=== PATIENT | female | born 1980 | race Two or more races ===

== ENCOUNTER 2017-09-20 18:10 | Emergency (ER) | payer BC ==
[~2017-09-20] VITALS: Ht 170.2 cm; Wt 113.4 kg
[2017-09-20 18:23] VITALS: BP 135/87
[2017-09-20 19:17] LABS: Eosinophils # (auto) 0.3 uL; Hemoglobin 11.8 g/dL (12.2-16.2); Neutrophils # (auto) 3.9 uL; Nucleated Red Blood Cells % 0.1 %; Red Cell Distribution Width 15.4 % (11.8-14.3)
[2017-09-20 19:19] LABS: Basophils # (auto) 0 uL; Basophils % (auto) 0.5 % (0.0-2.0); Eosinophils % (auto) 3.6 % (0.0-7.0); Hematocrit 35.8 % (36.0-46.0); Lymphocytes # (auto) 3.2 uL; Lymphocytes % (auto) 39.3 % (10.0-50.0); Mean Corpuscular Hemoglobin 27.2 pg (28.0-32.0); Mean Corpuscular Volume 82.5 fL (80.0-100.0); Monocytes # (auto) 0.6 uL; Monocytes % (auto) 7.6 % (0.0-12.0); Platelet Count (auto) 287 10^3/uL (140-450); Red Blood Cells 4.34 10^6/uL (4.0-5.20)
[2017-09-20 19:37] LABS: Alanine Aminotransferase 32 U/L (13-56); Albumin 3.8 g/dL (3.4-5.0); Alkaline Phosphatase 84 U/L (45-117); Anion Gap 8 (5-15); Aspartate Aminotransferase 19 U/L (15-37); BUN/Creatinine Ratio 14.8; Bilirubin, Total 0.2 mg/dL (0.2-1.0); Blood Urea Nitrogen 12 mg/dL (7-18); Calcium 8.6 mg/dL (8.5-10.1); Carbon Dioxide 23 mmol/L (21-32); Chloride 108 mmol/L (98-107); GFR African American 104 mL/min; GFR Non-African American 86 mL/min; Glucose 100 mg/dL (74-106); Magnesium 2.2 mg/dL (1.6-2.6); Potassium 3.6 mmol/L (3.5-5.1); Sodium 139 mmol/L (136-145); Total Protein 7.5 g/dL (6.4-8.2)
== END 2017-09-21 02:37 | disposition left against medical advice (07) ==
LOC: ER 18:10
DX: R20.0 Anesthesia of skin (principal); Z53.21 Procedure and treatment not carried out due to patient leaving prior to being seen by health care provider
CPT/HCPCS: 36415; 70450; 80053; 83735; 84484; 85025; 93005

== ENCOUNTER 2017-09-21 08:05 | Emergency (ER) | payer BC ==
[~2017-09-21] VITALS: Ht 170.2 cm; Wt 113.4 kg
[2017-09-21 08:22] VITALS: BP 115/76
== END 2017-09-21 08:45 | disposition home or self-care (01) ==
LOC: ER 08:11
DX: R20.0 Anesthesia of skin (principal); Z88.6 Allergy status to analgesic agent; Z88.8 Allergy status to other drugs, medicaments and biological substances

== ENCOUNTER 2021-01-16 13:49 | Emergency (ER) | payer BC ==
[~2021-01-16] VITALS: Ht 170.2 cm; Wt 113.4 kg
[2021-01-16 15:16] VITALS: BP 140/76
== END 2021-01-16 15:59 | disposition home or self-care (01) ==
LOC: ER 13:50
DX: S46.911A Strain of unspecified muscle, fascia and tendon at shoulder and upper arm level, right arm, initial encounter (principal); R51.9 Headache, unspecified; Z98.51 Tubal ligation status; Z88.6 Allergy status to analgesic agent; Z88.8 Allergy status to other drugs, medicaments and biological substances; V43.52XA Car driver injured in collision with other type car in traffic accident, initial encounter; Y93.89 Activity, other specified; Y92.410 Unspecified street and highway as the place of occurrence of the external cause; Y99.8 Other external cause status
CPT/HCPCS: 70450; 73030

== ENCOUNTER 2021-07-06 09:31 | Inpatient (IN) | payer BC ==
[~2021-07-06] VITALS: Ht 170.2 cm; Wt 117.7 kg
[2021-07-06 11:22] LABS: Basophils # (auto) 0.1 10 ^3/uL (0-0.2); Eosinophils # (auto) 0 10 ^3/uL (0-0.8); Monocytes # (auto) 0.5 10 ^3/uL (0-1.3); Red Blood Cells 4.26 10^6/uL (4.0-5.20)
[2021-07-06 11:24] LABS: Basophils % (auto) 0.6 % (0.0-2.0); Hemoglobin 9.9 g/dL (12.2-16.2); Lymphocytes # (auto) 0.4 10 ^3/uL (0.4-5.4); Lymphocytes % (auto) 4.3 % (10.0-50.0); Mean Corpuscular Hemoglobin 23.2 pg (28.0-32.0); Mean Corpuscular Hgb Conc. 31.9 g/dL (32.0-36.0); Mean Corpuscular Volume 72.8 fL (80.0-100.0); Monocytes % (auto) 4.5 % (0.0-12.0); Neutrophils # (auto) 9.4 10 ^3/uL (1.6-8.6); Neutrophils % (auto) 90.6 % (37.0-80.0); Nucleated Red Blood Cells % 0.1 %; White Blood Cell 10.4 10^3/uL (4.4-10.8)
[2021-07-06 11:34] LABS: Albumin 3.2 g/dL (3.4-5.0); Calcium 8.4 mg/dL (8.5-10.1); Potassium 3.2 mmol/L (3.5-5.1)
[2021-07-06 11:37] LABS: Urine Bacteria NONE SEEN /hpf (None Seen); Urine Blood TRACE /uL (Negative); Urine Mucus FEW (None Seen); Urine WBC 28 /hpf (0 - 5)
[2021-07-06 11:41] LABS: BUN/Creatinine Ratio 10.1; Total Protein 7.4 g/dL (6.4-8.2)
[2021-07-06] MEDS ORDERED: IBUPROFEN 800 MG TAB PO ONE (14:45)
[2021-07-06] MEDS ORDERED: cefTRIAXone 1GM/50ML D5W 50 ML IV ONE (19:30)
[2021-07-06] MEDS ORDERED: ONDANSETRON HCL 4 MG/2 ML VIAL IV ONE (19:30)
[2021-07-06] MEDS ORDERED: HYDROmorphone HCL 2 MG/ML VL IV ONE (19:30)
[2021-07-06] MEDS ORDERED: SODIUM CHLORIDE 0.9% 1,000 ML IV ONE ×2 (19:30→22:15)
[2021-07-06] MEDS ORDERED: POTASSIUM EFFERVESENT TAB 25 MEQ PO ONE (20:30)
[2021-07-06] MEDS ORDERED: DOCUSATE SOD 100 MG CAP PO PRN (22:15)
[2021-07-06] MEDS ORDERED: MORPHINE SULFATE INJECTION 2 MG/ML SYRG IV PRN ×2 (22:15)
[2021-07-06] MEDS ORDERED: NITROGLYCERIN 0.4 MG SL TAB SL PRN (22:15)
[2021-07-06] MEDS ORDERED: ONDANSETRON HCL 4 MG/2 ML VIAL IV PRN (22:15)
[2021-07-07 01:01] LABS: Basophils # (auto) 0 10 ^3/uL (0-0.2); Eosinophils # (auto) 0 10 ^3/uL (0-0.8); Hemoglobin 8.8 g/dL (12.2-16.2); Lymphocytes # (auto) 0.4 10 ^3/uL (0.4-5.4); Monocytes # (auto) 0.4 10 ^3/uL (0-1.3); Red Cell Distribution Width 17.2 % (11.8-14.3)
[2021-07-07 01:06] LABS: Basophils % (auto) 0.7 % (0.0-2.0); Eosinophils % (auto) 0.1 % (0.0-7.0); Hematocrit 27.3 % (36.0-46.0); Lymphocytes % (auto) 7.4 % (10.0-50.0); Mean Corpuscular Hemoglobin 23.6 pg (28.0-32.0); Mean Corpuscular Hgb Conc. 32.2 g/dL (32.0-36.0); Mean Corpuscular Volume 73.5 fL (80.0-100.0); Monocytes % (auto) 6.9 % (0.0-12.0); Neutrophils # (auto) 4.4 10 ^3/uL (1.6-8.6); Neutrophils % (auto) 84.9 % (37.0-80.0); Nucleated Red Blood Cells % 0.1 %; Red Blood Cells 3.72 10^6/uL (4.0-5.20); White Blood Cell 5.2 10^3/uL (4.4-10.8)
[2021-07-07 01:30] VITALS: BP 127/67
[2021-07-07] MEDS: IBUPROFEN 800 MG TAB PO PRN ×3 (02:03→20:52)
[2021-07-07] MEDS ORDERED: PAR20T PO (02:54)
[2021-07-07 05:00] VITALS: BP 105/63
[2021-07-07] MEDS: HYDROmorphone HCL 2 MG/ML VL IV PRN ×3 (06:26→22:39)
[2021-07-07 08:00] VITALS: BP 103/52
[2021-07-07 13:00] VITALS: BP 119/73
[2021-07-07] MEDS ORDERED: cefTRIAXone 1GM/50ML D5W 50 ML IV ONE (14:15)
[2021-07-07] MEDS ORDERED: metroNIDAZOLE 500MG/100ML 100 ML IV ONE (14:15)
[2021-07-07 16:00] VITALS: BP 122/64
[2021-07-07 16:52] LABS: Albumin 2.7 g/dL (3.4-5.0); Potassium 3.3 mmol/L (3.5-5.1)
[2021-07-07 16:53] LABS: INR 0.98 (0.9-1.15); Partial Thromboplastin Time 26.9 sec (23.6-33.0)
[2021-07-07 16:55] LABS: Bilirubin, Total 0.5 mg/dL (0.2-1.0); Total Protein 6.7 g/dL (6.4-8.2)
[2021-07-07] MEDS ORDERED: POTASSIUM EFFERVESENT TAB 25 MEQ PO ONE (17:15)
[2021-07-07] MEDS: SODIUM CHLORIDE 0.9% 1,000 ML IV SCH ×2 (17:27→23:53)
[2021-07-07] MEDS ORDERED: HYDROmorphone HCL 2 MG/ML VL IV ONE (17:45)
[2021-07-07 18:20] LABS: BUN/Creatinine Ratio 15.7
[2021-07-07] MEDS: metroNIDAZOLE 500MG/100ML 100 ML IV SCH (21:55)
[2021-07-07 22:00] VITALS: BP 129/69
[2021-07-07] MEDS: PANTOPRAZOLE 40 MG/10 ML VIAL INJ IV SCH (22:26)
[2021-07-08] VITALS: BP 114/57
[2021-07-08] MEDS: HYDROmorphone HCL 2 MG/ML VL IV PRN ×3 (04:46→22:30)
[2021-07-08 05:00] VITALS: BP 114/56
[2021-07-08] MEDS: metroNIDAZOLE 500MG/100ML 100 ML IV SCH ×3 (06:12→21:44)
[2021-07-08] MEDS: SODIUM CHLORIDE 0.9% 1,000 ML IV SCH ×3 (06:12→19:27)
[2021-07-08 06:16] LABS: Albumin 2.3 g/dL (3.4-5.0); Calcium 7.2 mg/dL (8.5-10.1); Potassium 3.3 mmol/L (3.5-5.1)
[2021-07-08 06:21] LABS: Bilirubin, Total 0.4 mg/dL (0.2-1.0); Total Protein 5.7 g/dL (6.4-8.2)
[2021-07-08 06:50] LABS: Basophils # (auto) 0 10 ^3/uL (0-0.2); Basophils % (auto) 0.5 % (0.0-2.0); Eosinophils # (auto) 0 10 ^3/uL (0-0.8); Eosinophils % (auto) 0.5 % (0.0-7.0); Hematocrit 24.6 % (36.0-46.0); Hemoglobin 7.9 g/dL (12.2-16.2); Lymphocytes # (auto) 1.2 10 ^3/uL (0.4-5.4); Lymphocytes % (auto) 26.3 % (10.0-50.0); Mean Corpuscular Hemoglobin 23.5 pg (28.0-32.0); Mean Corpuscular Hgb Conc. 32.1 g/dL (32.0-36.0); Mean Corpuscular Volume 73.1 fL (80.0-100.0); Monocytes # (auto) 0.5 10 ^3/uL (0-1.3); Neutrophils # (auto) 2.7 10 ^3/uL (1.6-8.6); Neutrophils % (auto) 60.7 % (37.0-80.0); Nucleated Red Blood Cells % 0.1 %; Red Blood Cells 3.37 10^6/uL (4.0-5.20); Red Cell Distribution Width 17.3 % (11.8-14.3); White Blood Cell 4.5 10^3/uL (4.4-10.8)
[2021-07-08 08:00] VITALS: BP 135/56
[2021-07-08 09:00] VITALS: BP 135/56
[2021-07-08] MEDS: PANTOPRAZOLE 40 MG/10 ML VIAL INJ IV SCH (09:14)
[2021-07-08] MEDS: cefTRIAXone 1GM/50ML D5W 50 ML IV SCH (09:14)
[2021-07-08] MEDS: IBUPROFEN 800 MG TAB PO PRN (09:49)
[2021-07-08] MEDS ORDERED: fentaNYL CITRATE 100 MCG/2 ML VL IV PRN (10:45)
[2021-07-08] MEDS ORDERED: ePHEDrine SULFATE 50 MG/ML AMP IV PRN (10:45)
[2021-07-08] MEDS ORDERED: MIDAZOLAM HCL 2MG/2ML 2ml VIAL (1mg/ml) IV PRN (10:45)
[2021-07-08] MEDS ORDERED: LABETALOL HCL 5 MG/ML 4ML SYRINGE IV PRN (10:45)
[2021-07-08] MEDS ORDERED: ONDANSETRON HCL 4 MG/2 ML VIAL IV PRN (10:45)
[2021-07-08] MEDS ORDERED: BUPIVACAINE W/ EPINEPH 0.25% INJ 50ML MDV ONE (11:17)
[2021-07-08] MEDS ORDERED: fentaNYL CITRATE 100 MCG/2 ML VL ONE ×2 (11:50→13:08)
[2021-07-08] MEDS ORDERED: MEPERIDINE HCL (50 MG/ML) 1 ML VIAL ONE (11:51)
[2021-07-08] MEDS ORDERED: MIDAZOLAM HCL 2MG/2ML 2ml VIAL (1mg/ml) ONE (11:51)
[2021-07-08] MEDS ORDERED: DexAMETHasone SOD PHOS 10MG/1ML VIAL INJ ONE (12:17)
[2021-07-08] MEDS ORDERED: SUCCINYLCHOLINE CHLORIDE 20 MG/ML 10ML VIAL IV ONE (12:26)
[2021-07-08] MEDS ORDERED: PROPOFOL 10 MG/ML 20 ML IV ONE (12:44)
[2021-07-08] MEDS ORDERED: ONDANSETRON HCL 4 MG/2 ML VIAL ONE (12:44)
[2021-07-08] MEDS ORDERED: ROCURONIUM 10MG/ML 10ML VIAL IV ONE (12:48)
[2021-07-08 17:00] VITALS: BP 130/75
[2021-07-08 22:00] VITALS: BP 116/92
[2021-07-09] VITALS (7 sets, daily range): BP systolic 105–120; BP diastolic 54–73
[2021-07-09] MEDS: SODIUM CHLORIDE 0.9% 1,000 ML IV SCH ×4 (01:50→21:50)
[2021-07-09] MEDS: HYDROmorphone HCL 2 MG/ML VL IV PRN ×3 (04:12→20:07)
[2021-07-09] MEDS: metroNIDAZOLE 500MG/100ML 100 ML IV SCH ×3 (05:14→21:49)
[2021-07-09 05:32] LABS: Basophils # (auto) 0 10 ^3/uL (0-0.2); Basophils % (auto) 0.2 % (0.0-2.0); Eosinophils # (auto) 0 10 ^3/uL (0-0.8); Hematocrit 23.7 % (36.0-46.0); Hemoglobin 7.8 g/dL (12.2-16.2); Lymphocytes # (auto) 1.1 10 ^3/uL (0.4-5.4); Lymphocytes % (auto) 17.8 % (10.0-50.0); Mean Corpuscular Hemoglobin 23.8 pg (28.0-32.0); Mean Corpuscular Hgb Conc. 32.7 g/dL (32.0-36.0); Mean Corpuscular Volume 72.7 fL (80.0-100.0); Monocytes # (auto) 0.6 10 ^3/uL (0-1.3); Monocytes % (auto) 9.3 % (0.0-12.0); Neutrophils # (auto) 4.4 10 ^3/uL (1.6-8.6); Neutrophils % (auto) 72.7 % (37.0-80.0); Nucleated Red Blood Cells % 0.1 %; Red Blood Cells 3.26 10^6/uL (4.0-5.20); Red Cell Distribution Width 17.2 % (11.8-14.3)
[2021-07-09 05:52] LABS: Albumin 2.5 g/dL (3.4-5.0); BUN/Creatinine Ratio 11.8; Calcium 7.8 mg/dL (8.5-10.1); Potassium 3.3 mmol/L (3.5-5.1)
[2021-07-09 06:09] LABS: Bilirubin, Total 0.2 mg/dL (0.2-1.0); Total Protein 6.1 g/dL (6.4-8.2)
[2021-07-09] MEDS: cefTRIAXone 1GM/50ML D5W 50 ML IV SCH (09:02)
[2021-07-09] MEDS: PANTOPRAZOLE 40 MG/10 ML VIAL INJ IV SCH (09:02)
[2021-07-09] MEDS ORDERED: POTASSIUM CHL 20 Meq TABLET PO ONE (10:45)
[2021-07-10] VITALS (7 sets, daily range): BP systolic 100–145; BP diastolic 67–97
[2021-07-10] MEDS: HYDROmorphone HCL 2 MG/ML VL IV PRN ×6 (01:48→23:51)
[2021-07-10] MEDS: SODIUM CHLORIDE 0.9% 1,000 ML IV SCH ×3 (05:20→17:30)
[2021-07-10 05:58] LABS: Eosinophils # (auto) 0.1 10 ^3/uL (0-0.8); Hemoglobin 7.3 g/dL (12.2-16.2); Mean Corpuscular Hemoglobin 23.8 pg (28.0-32.0); Monocytes # (auto) 0.9 10 ^3/uL (0-1.3); Neutrophils # (auto) 5.5 10 ^3/uL (1.6-8.6)
[2021-07-10 06:01] LABS: Basophils # (auto) 0 10 ^3/uL (0-0.2); Basophils % (auto) 0.4 % (0.0-2.0); Eosinophils % (auto) 0.7 % (0.0-7.0); Hematocrit 22.7 % (36.0-46.0); Lymphocytes # (auto) 2.6 10 ^3/uL (0.4-5.4); Lymphocytes % (auto) 28.6 % (10.0-50.0); Mean Corpuscular Hgb Conc. 32.3 g/dL (32.0-36.0); Mean Corpuscular Volume 73.6 fL (80.0-100.0); Monocytes % (auto) 9.4 % (0.0-12.0); Neutrophils % (auto) 60.9 % (37.0-80.0); Nucleated Red Blood Cells % 0.2 %; Red Blood Cells 3.09 10^6/uL (4.0-5.20); Red Cell Distribution Width 17.3 % (11.8-14.3); White Blood Cell 9.1 10^3/uL (4.4-10.8)
[2021-07-10 06:09] LABS: Albumin 2.4 g/dL (3.4-5.0); Calcium 7.5 mg/dL (8.5-10.1); Potassium 3.3 mmol/L (3.5-5.1)
[2021-07-10 06:12] LABS: BUN/Creatinine Ratio 19.7
[2021-07-10] MEDS: metroNIDAZOLE 500MG/100ML 100 ML IV SCH ×3 (06:13→22:06)
[2021-07-10 06:14] LABS: Bilirubin, Total 0.2 mg/dL (0.2-1.0); Total Protein 5.6 g/dL (6.4-8.2)
[2021-07-10] MEDS: cefTRIAXone 1GM/50ML D5W 50 ML IV SCH (09:29)
[2021-07-10] MEDS: PANTOPRAZOLE 40 MG/10 ML VIAL INJ IV SCH (09:34)
[2021-07-11] MEDS: SODIUM CHLORIDE 0.9% 1,000 ML IV SCH ×3 (00:30→14:03)
[2021-07-11 04:26] VITALS: BP 138/90
[2021-07-11 06:06] LABS: Hematocrit 23.7 % (36.0-46.0); Hemoglobin 7.8 g/dL (12.2-16.2); Mean Corpuscular Hemoglobin 23.7 pg (28.0-32.0); Mean Corpuscular Hgb Conc. 32.7 g/dL (32.0-36.0); Mean Corpuscular Volume 72.6 fL (80.0-100.0); Red Blood Cells 3.27 10^6/uL (4.0-5.20); Red Cell Distribution Width 17.1 % (11.8-14.3)
[2021-07-11] MEDS: metroNIDAZOLE 500MG/100ML 100 ML IV SCH ×2 (06:17→14:03)
[2021-07-11 06:28] LABS: Albumin 2.4 g/dL (3.4-5.0); Calcium 7.7 mg/dL (8.5-10.1)
[2021-07-11] MEDS: HYDROmorphone HCL 2 MG/ML VL IV PRN ×2 (06:31→10:43)
[2021-07-11 06:33] LABS: Bilirubin, Total 0.3 mg/dL (0.2-1.0); Total Protein 5.9 g/dL (6.4-8.2)
[2021-07-11 06:58] LABS: Potassium 2.9 mmol/L (3.5-5.1)
[2021-07-11 07:01] LABS: Basophils % (manual) 0 (0.0-2.0); Blast Cells 0; Eosinophils % (manual) 0 (0-7); Promyelocytes % 0; Reactive Lymphocytes 0
[2021-07-11 07:42] LABS: Band Neutrophils % (manual) 11; Lymphocytes % (manual) 35 (10.0-50.0); Metamyelocytes % 2; Monocytes % (manual) 3 (0-12); Myelocytes % 1
[2021-07-11] MEDS: POTASSIUM CHL 20MEQ/100ML 100 ML IV SCH ×3 (08:30→14:04)
[2021-07-11 09:03] VITALS: BP 131/88
[2021-07-11] MEDS: cefTRIAXone 1GM/50ML D5W 50 ML IV SCH (09:30)
[2021-07-11] MEDS: PANTOPRAZOLE 40 MG/10 ML VIAL INJ IV SCH (10:27)
[2021-07-11] MEDS ORDERED: POTA10TA51 PO (10:35)
[2021-07-11] MEDS ORDERED: METR500T PO (10:35)
[2021-07-11] MEDS ORDERED: LEVO500T31 PO (10:35)
[2021-07-11] MEDS ORDERED: HYDR2TAB58 PO (10:35)
[2021-07-11 12:09] VITALS: BP 131/84
[2021-07-11 13:22] VITALS: BP 131/80
[2021-07-11 17:00] VITALS: BP 135/85
[2021-07-11] MEDS ORDERED: POTASSIUM CHL 20 Meq TABLET PO SCH (22:00)
== END 2021-07-11 17:52 | disposition home or self-care (01) | DRG 854 ==
LOC: ER 09:31 → OVERFLOW 22:08 → EAST 23:41
PROVIDERS: ADMIT Internal Medicine; ATTEND Family Medicine
PROC: 0FT44ZZ Resection of Gallbladder, Percutaneous Endoscopic Approach (ICD-10-PCS; principal; 2021-07-08 11:44)
DX: A41.51 Sepsis due to Escherichia coli [E. coli] (principal); N39.0 Urinary tract infection, site not specified; Z68.41 Body mass index [BMI] 40.0-44.9, adult; K80.10 Calculus of gallbladder with chronic cholecystitis without obstruction; K80.20 Calculus of gallbladder without cholecystitis without obstruction; D53.9 Nutritional anemia, unspecified; E66.9 Obesity, unspecified; E87.6 Hypokalemia; N20.0 Calculus of kidney; Z20.822 Contact with and (suspected) exposure to COVID-19; N83.201 Unspecified ovarian cyst, right side; Z82.49 Family history of ischemic heart disease and other diseases of the circulatory system; Z88.5 Allergy status to narcotic agent; Z88.8 Allergy status to other drugs, medicaments and biological substances; Z88.6 Allergy status to analgesic agent
CPT/HCPCS: 36415; 71045; 74176; 76705; 78226; 80053; 81001; 83605; 84702; 85007; 85025; 85027; 85610; 85730; 87040; 87086; 87088; 87186; 93005; 96361; 96365; 96375; C9113; G0378; J0330; J0696; J1100; J2250; J2405; J2704; J3480; J3490

== ENCOUNTER 2021-12-17 10:58 | Day surgery (SDC) | payer BC ==
[2021-12-15 14:25] LABS: Basophils # (auto) 0.1 10 ^3/uL (0-0.2); Eosinophils # (auto) 0.3 10 ^3/uL (0-0.8); Eosinophils % (auto) 3.3 % (0.0-7.0); Lymphocytes # (auto) 2.6 10 ^3/uL (0.4-5.4); Lymphocytes % (auto) 33.4 % (10.0-50.0); Monocytes # (auto) 0.7 10 ^3/uL (0-1.3); Neutrophils # (auto) 4.1 10 ^3/uL (1.6-8.6)
[2021-12-15 14:27] LABS: Basophils % (auto) 1.1 % (0.0-2.0); Hematocrit 31.2 % (36.0-46.0); Hemoglobin 9.5 g/dL (12.2-16.2); Mean Corpuscular Hemoglobin 21.4 pg (28.0-32.0); Mean Corpuscular Hgb Conc. 30.3 g/dL (32.0-36.0); Mean Corpuscular Volume 70.7 fL (80.0-100.0); Monocytes % (auto) 9.2 % (0.0-12.0); Red Blood Cells 4.41 10^6/uL (4.0-5.20); Red Cell Distribution Width 18.3 % (11.8-14.3); White Blood Cell 7.7 10^3/uL (4.4-10.8)
[2021-12-15 14:44] LABS: INR 0.95 (0.9-1.15); Partial Thromboplastin Time 24.2 sec (24.6-33.4)
[2021-12-15 14:49] LABS: Albumin 3.9 g/dL (3.4-5.0); BUN/Creatinine Ratio 19.2; Calcium 8.5 mg/dL (8.5-10.1); Potassium 3.9 mmol/L (3.5-5.1)
[2021-12-15 14:52] LABS: Bilirubin, Total 0.3 mg/dL (0.2-1.0)
[~2021-12-17] VITALS: Ht 170.2 cm; Wt 115.7 kg
[2021-12-17] MEDS ORDERED: LIDOCAINE VISCOUS 2% 15ML UD ONE (12:49)
[2021-12-17] MEDS ORDERED: fentaNYL CITRATE 100 MCG/2 ML VL ONE (12:51)
[2021-12-17] MEDS: MIDAZOLAM HCL 5 MG/ML-1ML VIAL ONE ×3 (13:33→13:39)
[2021-12-17] MEDS: diphenhdrAMINE HCL 50 MG/1 ML VL ONE ×2 (13:33→13:34)
[2021-12-17 14:10] VITALS: BP 139/84
== END 2021-12-17 14:33 | disposition home or self-care (01) ==
LOC: GI 10:58
PROVIDERS: ATTEND Internal Medicine Gastroenterology
DX: R10.11 Right upper quadrant pain (principal); K21.00 Gastro-esophageal reflux disease with esophagitis, without bleeding; K44.9 Diaphragmatic hernia without obstruction or gangrene; K29.50 Unspecified chronic gastritis without bleeding; K25.9 Gastric ulcer, unspecified as acute or chronic, without hemorrhage or perforation; F41.9 Anxiety disorder, unspecified; Z90.49 Acquired absence of other specified parts of digestive tract; Z98.51 Tubal ligation status; Z98.890 Other specified postprocedural states; Z79.899 Other long term (current) drug therapy; Z88.5 Allergy status to narcotic agent; Z82.49 Family history of ischemic heart disease and other diseases of the circulatory system; Z95.0 Presence of cardiac pacemaker; Z20.822 Contact with and (suspected) exposure to COVID-19
CPT/HCPCS: 36415; 43239; 80053; 81025; 84702; 85025; 85610; 85730; 88305; 88342; J1200; J2250; J3010; J7030; U0003; 99152

== ENCOUNTER → 2022-05-25 | Day surgery (SDC) | payer BC ==
[2022-05-23 14:45] LABS: INR 0.95 (0.9-1.15); Partial Thromboplastin Time 24.4 sec (24.6-33.4)
[2022-05-23 14:59] LABS: Albumin 3.7 g/dL (3.4-5.0); BUN/Creatinine Ratio 19.2; Calcium 8.6 mg/dL (8.5-10.1); Potassium 3.9 mmol/L (3.5-5.1)
[2022-05-23 15:02] LABS: Bilirubin, Total 0.3 mg/dL (0.2-1.0); Total Protein 7.6 g/dL (6.4-8.2)
[2022-05-23 15:25] LABS: Basophils # (auto) 0 10 ^3/uL (0-0.2); Basophils % (auto) 0.6 % (0.0-2.0); Eosinophils # (auto) 0.2 10 ^3/uL (0-0.8); Eosinophils % (auto) 2.5 % (0.0-7.0); Hematocrit 31.4 % (36.0-46.0); Hemoglobin 9.8 g/dL (12.2-16.2); Lymphocytes # (auto) 3.1 10 ^3/uL (0.4-5.4); Lymphocytes % (auto) 38.7 % (10.0-50.0); Mean Corpuscular Hemoglobin 22.3 pg (28.0-32.0); Mean Corpuscular Hgb Conc. 31.2 g/dL (32.0-36.0); Mean Corpuscular Volume 71.5 fL (80.0-100.0); Monocytes # (auto) 0.7 10 ^3/uL (0-1.3); Monocytes % (auto) 8.8 % (0.0-12.0); Neutrophils # (auto) 3.9 10 ^3/uL (1.6-8.6); Neutrophils % (auto) 49.4 % (37.0-80.0); White Blood Cell 7.9 10^3/uL (4.4-10.8)
[~2022-05-25] VITALS: Ht 170.2 cm; Wt 124.7 kg
[2022-05-25] MEDS: diphenhdrAMINE HCL 50 MG/1 ML VL ONE ×2 (14:54→14:58)
[2022-05-25] MEDS: MIDAZOLAM HCL 2MG/2ML 2ml VIAL (1mg/ml) ONE ×2 (14:54→14:58)
[2022-05-25] MEDS: fentaNYL CITRATE 100 MCG/2 ML VL ONE ×2 (14:54→14:58)
[2022-05-25 15:50] VITALS: BP 120/62
== END | disposition home or self-care (01) ==
LOC: GI 12:33
PROVIDERS: ATTEND Internal Medicine Gastroenterology
DX: K62.5 Hemorrhage of anus and rectum (principal); K64.0 First degree hemorrhoids; F41.9 Anxiety disorder, unspecified; Z88.5 Allergy status to narcotic agent; Z88.6 Allergy status to analgesic agent; Z82.49 Family history of ischemic heart disease and other diseases of the circulatory system; Z98.890 Other specified postprocedural states; Z20.822 Contact with and (suspected) exposure to COVID-19
CPT/HCPCS: 36415; 45378; 80053; 81025; 85025; 85610; 85730; J1200; J2250; J3010; U0003

== ENCOUNTER 2025-03-09 15:30 | Emergency (ER) | payer BC, OTHER ==
[~2025-03-09] VITALS: Ht 170.2 cm; Wt 98.0 kg
--- NOTE | 2025-03-09 18:33 | ED.PDOC ---
History of Present Illness HPI Comments 44-year-old female presents with chief complaint of headache come off associated neck stiffness and nausea and vomiting for 1 week. She reports no relief with [id number] medications. Denies any facial droop, speech or vision changes, or further acute symptoms. Chief Complaint: Headache Time Seen by MD: 18:15 Primary Care Provider: CORIN Reviewed Notes: Nurses Notes Allergies: Coded Allergies: Acetaminophen (Verified Allergy, Unknown, 07/06/21) Codeine (Verified Allergy, Unknown, 07/06/21) Hydrocodone (Verified Allergy, Unknown, 07/06/21) Morphine (Verified Allergy, Unknown, 07/06/21) Tramadol (Verified Allergy, Unknown, 07/06/21) Home Meds Active Scripts Promethazine HCl (Promethazine Hydrochlorid) 25 Mg Tab, 25 MG PO Q6HP PRN, #30 TAB Prov:CT THOMAS MD 03/09/25 Orqeysmkcq-Gyvvsfheqsngd-Hrvmy (FIORICET TABLET) 1 Tab Tb, 1 TAB GT Q6HP PRN, #30 TAB Prov:CT THOMAS MD 03/09/25 Information Source: Patient Mode of Arrival: Ambulatory Severity: Moderate Timing: Weeks Duration: Since onset Prehospital treatment: None Past Medical History PAST MEDICAL HISTORY: Denies Surgical History: BTL, Cholecystectomy, Hernia Repair 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 Hx Family History Family History: Reviewed,noncontributory to illness, No family hx of HTN, Unknown Social History Smoker: Non-Smoker Alcohol: Denies ETOH Use Drugs: Denies Drug Use Lives In: Home All Other Systems: Reviewed and Negative (Comprehensive review of systems are negative unless stated in HPI) Physical Exam General Appearance: No Apparent Distress, Obese HEENT: Normal ENT Inspection, Pharynx Normal, TMs Normal Neck: Full Range of Motion, Non-Tender, Normal, Normal Inspection Respiratory: Chest Non-Tender, Lungs Clear, No Accessory Muscle Use, No Respiratory Distress, Normal Breath Sounds Cardiovascular: No Edema, No JVD, No Murmur, No Gallop, Normal Peripheral Pulses, Regular Rate/Rhythm Breast Exam: Deferred Gastrointestinal: No Organomegaly, Non Tender, No Pulsatile Mass, Normal Bowel Sounds, Soft Genitalia: Deferred Pelvic: Deferred Rectal: Deferred Extremities: No calf tenderness, Normal capillary refill, Normal inspection, Normal range of motion, Non-tender, No pedal edema Musculoskeletal : Apperance: Normal Neurologic: Alert, belt knife feeder II-XII nml as Tested, No Motor Deficits, Normal Affect, Normal Mood, No Sensory Deficits Cerebellar Function: Normal Reflexes: Normal Skin: Dry, Normal Color, Warm Lymphatic: No Adenopathy Was a procedure done? Was a procedure done?: No Differential Dx Considerations may include: Migraines, tension headache, dehydration, electrolyte imbalance, meningitis, viral symptoms, among others X-Ray, Labs, Meds, VS Vital Signs Date Time Temp Pulse Resp B/P (MAP) Pulse Ox O2 Delivery O2 Flow Rate FiO2 03/09/25 21:07 98.1 69 16 145/98 (114) 100 98.1 03/09/25 21:06 69 16 145/98 03/09/25 20:18 86 16 138/84 03/09/25 19:44 98.3 72 18 136/95 (109) 99 98.3 03/09/25 15:33 98.1 90 17 144/100 100 98.1 Lab Test 03/09/25 18:30 Range/Units White Blood Count 8.6 4.4-10.8 10^3/uL Red Blood Count 4.89 4.0-5.20 10^6/uL Hemoglobin 14.5 12.2-16.2 g/dL Hematocrit 42.7 36.0-46.0 % Mean Corpuscular Volume 87.3 80.0-100.0 fL Mean Corpuscular Hemoglobin 29.6 28.0-32.0 pg Mean Corpuscular Hemoglobin Concent 34.0 32.0-36.0 g/dL Red Cell Distribution Width 14.8 H 11.8-14.3 % Platelet Count 306 140-450 10^3/uL Mean Platelet Volume 7.7 6.9-10.8 fL Neutrophils (%) (Auto) 50.6 37.0-80.0 % Lymphocytes (%) (Auto) 38.6 10.0-50.0 % Monocytes (%) (Auto) 5.7 0.0-12.0 % Eosinophils (%) (Auto) 4.3 0.0-7.0 % Basophils (%) (Auto) 0.8 0.0-2.0 % Neutrophils # (Auto) 4.4 1.6-8.6 10 ^3/uL Lymphocytes # (Auto) 3.3 0.4-5.4 10 ^3/uL Monocytes # (Auto) 0.5 0-1.3 10 ^3/uL Eosinophils # (Auto) 0.4 0-0.8 10 ^3/uL Basophils # (Auto) 0.1 0-0.2 10 ^3/uL Nucleated Red Blood Cells 0.1 % Sodium Level 143 136-145 mmol/L Potassium Level 3.4 L 3.5-5.1 mmol/L Chloride Level 107 98-107 mmol/L Carbon Dioxide Level 28 20-31 mmol/L Anion Gap 8 5-15 Blood Urea Nitrogen 12 9-23 mg/dL Creatinine 0.81 0.550-1.02 mg/dL Glomerular Filtration Rate Calc 93 >90 mL/min BUN/Creatinine Ratio 14.8 10.0-20.0 Serum Glucose 88 74-106 mg/dL Calcium Level 9.3 8.7-10.4 mg/dL Current Medications Medications (Trade) Dose Ordered Sig/Thiago Route Start Time Stop Time Status Last Admin Hydromorphone HCl (Dilaudid Injection) 1 mg ONCE ONCE IM 03/09/25 20:00 03/09/25 20:01 DC 03/09/25 20:18 Ondansetron HCl (Zofran Po) 8 mg ONCE ONCE PO 03/09/25 20:00 03/09/25 20:01 DC 03/09/25 20:18 Diphenhydramine HCl (Benadryl Injection) 50 mg ONCE ONCE IM 03/09/25 20:00 03/09/25 20:01 DC 03/09/25 20:15 Potassium Chloride (Klor-Con Tablet) 10 meq ONCE ONCE PO 03/09/25 20:00 03/09/25 20:01 DC 03/09/25 20:18 Time of 1ST Reevaluation: 18:45 Reevaluation 1ST: Unchanged Patient Education/Counseling: Diagnosis, Treatment, Need For Follow Up Family Education/Counseling: No Family Present SEPSIS Sepsis Screen Date sepsis recognized/suspect: Mar 09, 2025 Time Sepsis recognized/suspect: 1534 Recent Procedure: No On Antibiotic Therapy: No Respiratory Rate >20: No Heart Rate >90: No Temp<36 C (96.8 F) or >38.3 C: No SBP <90 or MAP <65 mmHG: No New Acute Mental Status Change: No Is the patient on CPAP, BIPAP,: No Physician Orders Head Without Contrast (03/09/25 18:23) Vital Signs Date Time Temp Pulse Resp B/P (MAP) Pulse Ox O2 Delivery O2 Flow Rate FiO2 03/09/25 21:07 98.1 69 16 145/98 (114) 100 98.1 03/09/25 21:06 69 16 145/98 03/09/25 20:18 86 16 138/84 03/09/25 19:44 98.3 72 18 136/95 (109) 99 98.3 03/09/25 15:33 98.1 90 17 144/100 100 98.1 Laboratory Tests Test 03/09/25 18:30 White Blood Count 8.6 10^3/uL (4.4-10.8) Medications Medications Dose Ordered Sig/Thiago Route Start Time Stop Time Status Last Admin Dose Admin Diphenhydramine HCl 50 mg ONCE ONCE IM 03/09/25 20:00 03/09/25 20:01 DC 03/09/25 20:15 Hydromorphone HCl 1 mg ONCE ONCE IM 03/09/25 20:00 03/09/25 20:01 DC 03/09/25 20:18 Ondansetron HCl 8 mg ONCE ONCE PO 03/09/25 20:00 03/09/25 20:01 DC 03/09/25 20:18 Potassium Chloride 10 meq ONCE ONCE PO 03/09/25 20:00 03/09/25 20:01 DC 03/09/25 20:18 Departure 1 Departure Time of Disposition: 20:30 Impression: Primary Impression: Acute headache Disposition: HOME / SELF CARE / HOMELESS Condition: Stable e-Prescriptions Promethazine HCl (Promethazine Hydrochlorid) 25 Mg Tab 25 MG PO Q6HP PRN, #30 TAB Prov: CT THOMAS MD 03/09/25 Trdpfhzyki-Jjjjadyenvqyy-Tapbg (FIORICET TABLET) 1 Tab Tb 1 TAB GT Q6HP PRN, #30 TAB Prov: CT THOMAS MD 03/09/25 Discharged With: Self Critical Care Note Critical Care Time?: No Stability Stability form required: No Heart Score Heart Score: Heart Score Response (Comments) Value History N/A 0 EKG N/A 0 Age N/A 0 Risk Factors N/A 0 Troponin N/A 0 Total 0 I personally scribed for CT THOMAS MD ([email or web address]) on 03/09/25 at 18:33. Electronically submitted by Earl Estrada ([email or web address]). CT THOMAS MD Mar 09, 2025 18:33
[2025-03-09 18:54] LABS: Hematocrit 42.7 % (36.0-46.0); Hemoglobin 14.5 g/dL (12.2-16.2); Mean Corpuscular Hemoglobin 29.6 pg (28.0-32.0); Mean Corpuscular Volume 87.3 fL (80.0-100.0); Nucleated Red Blood Cells % 0.1 %
[2025-03-09 18:58] LABS: Chloride 107 mmol/L (98-107); Sodium 143 mmol/L (136-145)
[2025-03-09 18:59] LABS: Anion Gap 8 (5-15); Calcium 9.3 mg/dL (8.7-10.4); Carbon Dioxide 28 mmol/L (20-31)
[2025-03-09 19:04] LABS: BUN/Creatinine Ratio 14.8 (10.0-20.0); Blood Urea Nitrogen 12 mg/dL (9-23); Glucose 88 mg/dL (74-106); Potassium 3.4 mmol/L (3.5-5.1)
--- NOTE | 2025-03-09 19:17 | DVH ---
COMPUTERIZED TOMOGRAPHY OF THE HEAD WITHOUT CONTRAST REASON FOR STUDY: headache COMPARISON: None TECHNIQUE: Helical tomographic scans were obtained through the brain. 2-D coronal and sagittal reformatted images are provided. Radiation optimization: All CT scans at this facility use at least one of these dose optimization techniques: Automated exposure control mA and/or kV adjustment per patient size (includes targeted exams where dose is matched to clinical indication) or iterative reconstruction. RADIATION DOSE: CTDI: 61 mGy DLP: 1106 mGy-cm FINDINGS: No suspicious intracranial hyperdensity to suggest acute blood. There is a 3.2 x 2.5 cm CSF density in the posterior fossa posterior to the cerebellum, most consistent with an arachnoid cyst. There is no mass effect nor midline shift. There is no hydrocephalus. The suprasellar cistern is intact. The calvarium is intact. The visualized mastoid air cells and paranasal sinuses are clear. IMPRESSION: No acute intracranial abnormality.
[2025-03-09] MEDS ORDERED: PROM25TA21 PO (19:54)
[2025-03-09] MEDS ORDERED: BUTA-259 GT (19:54)
[2025-03-09] MEDS: diphenhydrAMINE HCL 50 MG/1 ML VL IM ONE (20:15)
[2025-03-09] MEDS: ONDANSETRON ODT 4 MG TAB PO ONE (20:18)
[2025-03-09] MEDS: HYDROmorphone HCL 2 MG/ML VL/or syr IM ONE (20:18)
[2025-03-09] MEDS: POTASSIUM CHL 10 Meq TABLET PO ONE (20:18)
[2025-03-09 21:07] VITALS: BP 145/98; PULSE 69; RESP 16; TEMP 98.1; O2SAT 100
== END 2025-03-09 21:08 | disposition home or self-care (01) ==
LOC: ER 15:30
DX: R51.9 Headache, unspecified (principal); R11.2 Nausea with vomiting, unspecified; Z79.899 Other long term (current) drug therapy; Z98.890 Other specified postprocedural states; Z98.51 Tubal ligation status; Z90.49 Acquired absence of other specified parts of digestive tract; Z88.5 Allergy status to narcotic agent
CPT/HCPCS: 36415; 70450; 80048; 85025; 96372; 99285; J1171; J1200; Q0162